=== PATIENT | male | born 1985 | race Caucasian/White ===

== ENCOUNTER 2020-03-22 10:53 | Emergency (ER) | payer BC ==
[~2020-03-22] VITALS: Ht 182.9 cm; Wt 104.3 kg
--- NOTE | 2020-03-22 11:30 | NUR ---
PT CAME TO THE ER C/O BRIGHT RED RECTAL BLEEDING SINCE 399 THIS MORNING. PT AAOX4, VSS,RESPIRATIOS EVEN AND UNLABORED ON RA W/ NAD NOTED. PT CONNECTED TO THE MONITOR AND POX
[2020-03-22] MEDS ORDERED: IV NS 0.9% 1,000 ML BAG IV ONE (12:30)
--- NOTE | 2020-03-22 12:52 | NUR ---
BLOOD DRAWN AND SENT TO LAB
[2020-03-22 13:15] LABS: BASOPHILS % (AUTO) 0.7 % (0.0-2.0); EOSINOPHILS % (AUTO) 4.4 % (0.0-6.0); HEMATOCRIT 49 % (39-51); HEMOGLOBIN 16.4 g/dL (13.5-17.5); LYMPHOCYTES # (AUTO) 2.6 /CMM (0.8-4.8); LYMPHOCYTES % (AUTO) 36.6 % (20.0-44.0); MEAN CORPUSCULAR HGB CONC 33 g/dl (31.0-36.0); MEAN CORPUSCULAR VOLUME 89 fL (80-96); MONOCYTES # (AUTO) 0.6 /CMM (0.1-1.30); MONOCYTES % (AUTO) 8.1 % (2.0-12.0); NEUTROPHILS # (AUTO) 3.6 /CMM (1.8-8.9); NEUTROPHILS % (AUTO) 50.2 % (43.0-81.0); PLATELET COUNT (AUTO) 245 /CMM (150-450); RED BLOOD CELL COUNT(AUTO) 5.54 MIL/uL (4.5-6.0); WHITE BLOOD COUNT (AUTO) 7.1 K/uL (4.3-11.0)
--- NOTE | 2020-03-22 13:30 | NUR ---
No any significant changes. IFVF tolerated.
[2020-03-22 14:06] LABS: CALCIUM, SERUM 8.6 mg/dL (8.5-10.1); POTASSIUM 4.1 mmol/L (3.5-5.1)
[2020-03-22 14:14] LABS: ALBUMIN 3.5 g/dL (3.4-5.0); BILIRUBIN,DIRECT 0.1 mg/dL (0.0-0.2); BILIRUBIN,TOTAL 0.3 mg/dL (0.2-1.0); TOTAL PROTEIN, SERUM 6.8 g/dL (6.4-8.2)
[2020-03-22] MEDS ORDERED: IOHEXOL-300 100 ML VIAL IV ONE (14:18)
[2020-03-22] MEDS ORDERED: IV NS 0.9% 250 ML IV ONE (14:18)
[2020-03-22] MEDS ORDERED: MORPHINE SULFATE INJ 2 MG/ML DISP.SYRIN ONE (14:28)
[2020-03-22] MEDS ORDERED: MORPHINE SULFATE INJ 2 MG/ML DISP.SYRIN IV ONE (14:30)
--- NOTE | 2020-03-22 14:37 | NUR ---
A/Ox4, with c/o 7/10 RUP abdominal pain. Morphine given as ordered.
[2020-03-22 15:46] VITALS: BP 128/76
== END 2020-03-22 15:46 | disposition home or self-care (01) ==
LOC: ER 11:03
DX: K62.5 Hemorrhage of anus and rectum (principal); R42 Dizziness and giddiness; Z88.1 Allergy status to other antibiotic agents
CPT/HCPCS: 36415; 74177; 80048; 80076; 83690; 85025; 85730; 96361; 96374; 99285; J2270; J7030 ×2; J7050; Q9967